=== PATIENT | female | born 1995 | race African-American/Black ===

== ENCOUNTER 2022-01-06 22:07 | Emergency (ER) | payer OTHER ==
--- NOTE | 2022-01-06 22:52 | ED Physician Documentation ---
History of Present Illness - Stated complaint Stated Complaint: DIZZY,FATIGUE - Chief complaint Chief Complaint: Neuro - History obtained from History obtained from: Patient - History of Present Illness Timing: How many weeks ago (3) Improved by: no ameliorating factors Worsened by: no exacerbating factors - Additonal information Additional information: c/o 3 weeks of dizziness, nausea without vomiting, fatigue, chest pain, anxiety. Patient is visiting [facility] from [place]. She says she has been ev aluated for these symptoms by "multiple doctors, "two different hospitals" (per patient). She says she was admitted 12/25-12/30 and underwent change in medications. Review of Systems Constitutional: reports: Fatigue. denies: Fever, Chills, Sweats Cardiac: reports: Chest pain / pressure. denies: Palpitations, Pedal edema, Calf pain Respiratory: reports: Reviewed and negative GI: reports: Nausea. denies: Vomiting, Constipation, Diarrhea : denies: Dysuria, Frequency, Now EGA Musculoskeletal: reports: Reviewed and negative Neurologic: reports: Headache. denies: Generalized weakness, Focal weakness, Numbness, Confused, Altered mental status PD PAST MEDICAL HISTORY - Allergies Allergies/Adverse Reactions: Allergies Allergy/AdvReac Type Severity Reaction Status Date / Time shellfish derived Allergy Hives Verified 01/06/22 22:24 - Living Situation Living Situation: reports: Other (patient describes her situation as "homeless vet" (per patient)) PD ED PE NORMAL - Vitals Vital signs reviewed: Yes - General General: Alert and oriented X 3, No acute distress, Well developed/nourished - Neck Neck: Supple, no meningeal sign - Cardiac Cardiac: RRR, No murmur - Respiratory Respiratory: No respiratory distress, Clear bilaterally - Abdomen Abdomen: Soft, Non tender - Extremities Extremities: No edema - Neuro Neuro: Alert and oriented X 3, 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, No motor deficit, No sensory deficit, Normal speech Eye Opening: Spontaneous Motor: Obeys Commands Verbal: Oriented GCS Score: 15 - Psych Psych: Normal mood, Normal affect Results - Vitals Vitals: Oxygen O2 Source Room air - EKG (time done) No standard instances Rate: Rate (enter#) (74) Rhythm: NSR [place]: Normal Intervals: Normal [place] QRS: Normal Ischemia: Normal ST segments - Labs Labs: Laboratory Tests 01/06/22 01/06/22 23:53 23:53 WBC 9.5 RBC 5.00 Hgb 13.3 Hct 41.3 MCV 82.6 MCH 26.6 L MCHC 32.2 RDW 14.6 Plt Count 246 MPV 10.6 Neut # (Auto) 6.2 Lymph # (Auto) 2.3 Mcdonough # (Auto) 0.8 Eos # (Auto) 0.1 Baso # (Auto) 0.0 Absolute Nucleated RBC 0.00 Nucleated RBC % 0.0 Sodium 139 Potassium 3.8 Chloride 104 Carbon Dioxide 27 Anion Gap 8.0 BUN 12 Creatinine 0.9 Estimated GFR (MDRD) 92 Glucose 91 Calcium 9.5 Total Bilirubin 0.6 AST 12 ALT 14 Alkaline Phosphatase 71 Total Protein 7.0 Albumin 4.2 Globulin 2.8 Albumin/Globulin Ratio 1.5 Lipase 40 PD MEDICAL DECISION MAKING - ED course Complexity details: reviewed results, re-evaluated patient, considered d ifferential, d/w patient ED course: few weeks of multiple symptoms. Patient indicates she has been evaluated recently for these symptoms including inpatient stay in a hospital in [place]. In discussing this further, it became apparent that patient was admitted for mental health purposes. She denies SI/HI/AH/VH. her testing tonight includes CBC, ER abdominal panel, and EKG with unremarkable results. Safe and appropriate for discharge at this time. Results reviewed with patient, return precautions discussed. Departure - Departure Disposition: 01 Home, Self Care Clinical Impression: Near syncope Condition: Good Instructions: ED Near Syncope Unkn Comments: The results of your blood tests are normal. The cause of your symptoms is not apparent at this time. Follow up with your primary care provider for reevaluation , next available appointment Discharge Date/Time: 01/07/22 02:58
[2022-01-07 00:11] LABS: BASOPHILS % (AUTO) 0.3 %; EOSINOPHILS # (AUTO) 0.1 10^3/uL (0.0-0.7); EOSINOPHILS % (AUTO) 1.4 %; HCT - HEMATOCRIT 41.3 % (37.0-47.0); HGB - HEMOGLOBIN 13.3 g/dL (12.0-16.0); LYMPHOCYTES # (AUTO) 2.3 10^3/uL (1.5-3.5); LYMPHOCYTES % (AUTO) 24.4 %; MEAN CORPUSCULAR HEMOGLOBIN 26.6 pg (27.0-31.0); MEAN CORPUSCULAR HGB CONC 32.2 g/dL (32.0-36.0); MEAN CORPUSCULAR VOLUME 82.6 fL (81.0-99.0); MEAN PLATELET VOLUME 10.6 fL (7.9-10.8); MONOCYTES # (AUTO) 0.8 10^3/uL (0.0-1.0); NEUTROPHILS # (AUTO) 6.2 10^3/uL (1.5-6.6); NEUTROPHILS % (AUTO) 65.6 %; PLT - PLATELET COUNT 246 10^3/uL (130-450); RED CELL DISTRIBUTION WIDTH 14.6 % (12.0-15.0); WHITE BLOOD COUNT 9.5 x10^3/uL (4.8-10.8)
[2022-01-07 00:20] LABS: ALBUMIN 4.2 g/dL (3.2-5.5); ALBUMIN/GLOBULIN RATIO 1.5 (1.0-2.2); BILIRUBIN,TOTAL 0.6 mg/dL (0.2-1.0); CALCIUM 9.5 mg/dL (8.5-10.3); CREATININE 0.9 mg/dL (0.4-1.0); POTASSIUM 3.8 mmol/L (3.5-5.0)
[2022-01-07 02:34] VITALS: BP 105/81
== END 2022-01-07 02:58 | disposition home or self-care (01) ==
LOC: ED 22:07
DX: R55 Syncope and collapse (principal)
CPT/HCPCS: 36415; 80053; 83690; 85025; 93005; 99282; 99283